=== PATIENT | male | born 1990 | race Caucasian/White ===

== ENCOUNTER 2016-04-10 21:14 | Emergency (ER) | payer BC ==
--- NOTE | ~2016-04-10 | CR142 ---
[facility]. [facility] A Service of [facility] & [facility] / [facility] RADIOLOGY TEXT RESULTS PATIENT: CALLIE GILLIAM LOCATION: SED : [birth year] UNIT #: [id number] AGE: [address]: Grupo Angeles MD SEX: M ORDER DR: [id number] [place] [id number] E MR#: [id number] Acc #: [id number] NAME: CALLIE GILLIAM : 1990 SEX: M STUDY DATE/TIME: 04/10/2016 21:12 UNIT: SED ROOM: STUDY DESCRIPTION: CR Hand Min 3 Views Rt Attending Physician: Grupo Angeles M.D. Ordering Physician: Grupo Angeles M.D. Primary Care Physician: Guillermo Albrecht M.D. MEDICAL IMAGING REPORT This report is preliminary unless electronic signature is present. EXAM Hand 3 views HISTORY Hand pain and bruising after fall 2 days ago. FINDINGS AP, lateral, and oblique projections of the hand show good mineralization with normal carpal, metacarpal, and phalangeal anatomy without indication of fracture, dislocation, or soft tissue radiopaque foreign body. IMPRESSION Normal hand. Dictated by... Phoenix Peng M.D. THIS IS AN ELECTRONICALLY VERIFIED REPORT Phoenix Peng M.D. at 04/12/2016 3:29 PM DFL/tammi TD: 04/11/2016 12:50 JOB #: [id number] MEDICAL IMAGING REPORT
[~2016-04-10 21:14] MED LIST: ADDERALL PO; CIPRO; CIPRO PO; FISH OIL500 M2; FLEXERIL10 MG PO; FLOMAX0.4 M1 PO; NO MEDICATIONS; PERCOCET5/325; POT CITRATE PO; TYLENOL #3 PO; VICODIN PO; VITAMIN B-12500 MCG PO; VOLTAREN50 MG PO; VOLTAREN75 MG PO; [UNRECOGNIZED DRUG - OTHER]
== END 2016-04-10 21:59 | disposition home or self-care (01) ==
LOC: SED 21:14
DX: S60.221A Contusion of right hand, initial encounter (principal); Z87.891 Personal history of nicotine dependence; W19.XXXA Unspecified fall, initial encounter; Y92.89 Other specified places as the place of occurrence of the external cause
CPT/HCPCS: 73130; 99283